=== PATIENT | female | born 1955 | race Caucasian/White ===

== ENCOUNTER 2021-01-11 09:12 | Day surgery (SDC) | payer MEDICARE ==
[~2021-01-11] VITALS: Ht 161 cm; Wt 106.1 kg
[~2021-01-11 09:12] MED LIST: BUSP5 PO; ESTR2; FISH1000 PO; Prinivil10 MG PO; RXPROACE PO; [UNRECOGNIZED DRUG - REMARK]
--- NOTE | 2021-01-11 09:43 | NUR ---
History, Chart, Medications and Allergies reviewed before start of procedure. Patient confirms NPO status and agrees with scheduled surgery. Patient States Post-Procedure ride home has been arranged with her daughter, Andreina. Reports taking all of colon prep with clear results.
[2021-01-11] MEDS ORDERED: METO50ER PO (09:55)
[2021-01-11] MEDS ORDERED: ALPR1 PO (09:57)
[2021-01-11] MEDS ORDERED: VITAMIN D3 (09:58)
--- NOTE | 2021-01-11 10:54 | NUR ---
01/11/21 1054 Adán Garrett HISTORY,CHART, MEDICATIONS AND ALLERGIES REVIEWED BEFORE START OF PROCEDURE. PATIENT CONFIRMS NPO STATUS AND AGREES WITH SCHEDULED PROCEDURE. 3-LEAD EKG REVIEWED WITH PHYSICIAN PRIOR TO START OF PROCEDURE. MONITOR INTACT WITH CONTINUOUS PULSE OXIMETRY AND INTERMITTENT BP. SUPPLEMENTAL O2 TO BE TITRATED THROUGHOUT PROCEDURE TO MAINTAIN O2 SATURATION ABOVE 90%. PATIENT DETERMINED TO BE ASA APPROPRIATE FOR MODERATE SEDATION PRIOR TO START OF PROCEDURE BY DR. SANTIAGO.
--- NOTE | 2021-01-11 11:29 | NUR ---
PATIENT ALERT AND ORIENTED. REPOSITIONED SELF IN BED. REQUESTED AND TOLERATING PO FOOD AND FLUIDS.
--- NOTE | 2021-01-11 11:52 | NUR ---
Patient up to Ambulate independently. Gait steady. Discharge instructions reviewed with patient. Patient verbalizes understanding. Copy given to patient to take home. Patient States Post-Procedure ride home has been arranged. Discharged via wheelchair to private car for ride home. PATIENT STATES DISCHARGE INSTRUCTIONS VERBALLY GIVEN TO HER FROM DR. SANTIAGO IN REGARDS TO NEXT COLONOSCOPY AND FOLLOW UP APPOINTMENT. ALL BELONGINGS RETURNED TO PATIENT.
== END 2021-01-11 11:52 | disposition home or self-care (01) ==
LOC: ORSCMMR 09:12 → ORD 10:00 → ORSCMMR 11:52
PROVIDERS: Internal Medicine Gastroenterology
PROC: 0DBL8ZX Excision of Transverse Colon, Via Natural or Artificial Opening Endoscopic, Diagnostic (ICD-10-PCS; principal; 2021-01-11 10:00)
PROC: 0DBN8ZX Excision of Sigmoid Colon, Via Natural or Artificial Opening Endoscopic, Diagnostic (ICD-10-PCS; principal; 2021-01-11 10:00)
DX: Z12.11 Encounter for screening for malignant neoplasm of colon (principal); Z86.010 Personal history of colon polyps; D12.3 Benign neoplasm of transverse colon; K63.5 Polyp of colon; I10 Essential (primary) hypertension; F41.9 Anxiety disorder, unspecified; E78.00 Pure hypercholesterolemia, unspecified; G47.30 Sleep apnea, unspecified; E66.01 Morbid (severe) obesity due to excess calories; Z68.41 Body mass index [BMI] 40.0-44.9, adult; F17.210 Nicotine dependence, cigarettes, uncomplicated; Z79.899 Other long term (current) drug therapy
CPT/HCPCS: 88305; J2250; J3010; J7120

== ENCOUNTER 2022-07-04 12:02 | Inpatient (IN) | payer OTHER, MEDICARE ==
[~2022-07-04] VITALS: Ht 172.7 cm; Wt 136.1 kg
[~2022-07-04 12:02] MED LIST changes: +ALPR1 PO; +METO50ER PO; +VITAMIN D3
[2022-07-04 12:20] LABS: Calcium, Ionized (POC) 1.06 mmol/L (1.10-1.46); Chloride (POC) 109 mmol/L (98-108); Creatinine (POC) 1.1 mg/dL (0.6-1.0); Glucose (ISTAT POC) 182 mg/dL (70-99); Hemoglobin (POC) 15.3 g/dL (12.0-16.0); Potassium (POC) 4.4 mmol/L (3.5-5.5); Sodium (POC) 138 mmol/L (135-148); Total CO2 (POC) 20 mmol/L (21-32)
[2022-07-04 12:50] LABS: Hematocrit 46.1 % (33.0-51.0); Hemoglobin 13.5 g/dL (11.5-16.0); Mean Corpuscular HGB 27.4 pg (26.0-34.0); Mean Corpuscular HGB Conc 29.3 g/dL (31.5-36.5); Mean Corpuscular Volume 94 fL (80-100); Mean Platelet Volume 9.9 fL (9.1-12.4); NRBC ABSOLUTE 0.12 K/mm3 (0.00-0.02); NRBC Auto 1.4 /100 WBC (0.0-0.2); Platelet Count 126 K/mm3 (150-400); RDW Coefficient Variation 15.5 % (11.7-14.2); RDW Standard Deviation 53.3 fL (35.1-46.3); Red Blood Cell Count 4.93 M/mm3 (3.80-5.20); White Blood Cell Count 8.53 K/mm3 (4.00-11.30)
[2022-07-04 13:00] LABS: Bicarbonate Venous 7.8 mmol/L (24.0-30.0); PCO2 Venous 56.9 mmHg (38-42)
[2022-07-04 13:01] LABS: pH Blood Venous 6.82 (7.34-7.37)
[2022-07-04 13:15] LABS: Albumin/Globulin Ratio 0.6 (0.8-1.8); Bilirubin, Total 0.4 mg/dL (0.1-1.0); Bun/Creatinine Ratio 12.5 (12.0-20.0); Calcium, Blood 10.3 mg/dL (8.5-10.1); Creatinine, Blood 1.04 mg/dL (0.40-1.00); Globulin, Blood 3.1 g/dL (2.2-4.0); Total Protein, Blood 5.1 g/dL (6.4-8.2)
[2022-07-04 13:25] LABS: BAND PERCENT MAN 3 % (0-8); BASOPHILS PERCENT MAN 0 % (0-2); EOSINOPHILS ABSOLUTE MAN 0.17 K/mm3 (0.00-0.68); EOSINOPHILS PERCENT MAN 2 % (0-6); LYMPHOCYTES ABSOLUTE MAN 4.77 K/mm3 (0.84-5.20); LYMPHOCYTES PERCENT MAN 56 % (21-46); METAMYELOCYTE ABSOLUTE MAN 0.17 K/mm3 (0.00-0.00); METAMYELOCYTE PERCENT MAN 2 % (0-0); MONOCYTES ABSOLUTE MAN 0.34 K/mm3 (0.16-1.47); MONOCYTES PERCENT MAN 4 % (4-13); MYELOCYTE ABSOLUTE MAN 0.17 K/mm3 (0.00-0.00); MYELOCYTE PERCENT MAN 2 % (0-0); SEG NEUTROPHILS PERCENT MAN 31 % (41-73); TOTAL CELLS COUNTED 100
[2022-07-04 13:57] LABS: International Normalized Ratio 1.27; Prothrombin Time Results 13.1 Sec (9.7-11.5)
[2022-07-04 14:08] LABS: PCO2 Arterial 56.7 mmHg (35-45); PO2 Arterial 70.5 mmHg (80-100); pH Blood Arterial 6.96 (7.35-7.45)
[2022-07-04 14:39] LABS: Influenza A, PCR NEGATIVE (NEGATIVE); Influenza B, PCR NEGATIVE (NEGATIVE); Resp Syncytial Virus, PCR NEGATIVE (NEGATIVE); SARS-Cov-2 (COVID-19) PCR, MMC NEGATIVE (NEGATIVE)
[2022-07-04 17:08] LABS: PCO2 Arterial 42.9 mmHg (35-45); PO2 Arterial 64.7 mmHg (80-100); pH Blood Arterial 7.03 (7.35-7.45)
--- NOTE | 2022-07-04 18:11 | NUR ---
Called to update family and review prognosis. Pt unreponsive not on sedation, long history of htn and smoking and obesity. Family relays she has been struggling with uncontrolled htn the pst few months. States she was having pain in the middle of her back and went to chiropractor. Came home complaining of chest pain. proceded to go into cardiac arrest. Met wt her daughter and young son. Brought them to room to see her and interact with her. relayed [facility] lab plan her vitals and that she was not on any sedation and not waking up. Advised we are going to give her comprehensive care but she may not survive or recover well. Her chlidren were loving and encouraged her but understand how grim her prospects are and will update the family.
--- NOTE | 2022-07-04 18:40 | NUR ---
Spiritual Care | Nurse Request. Pt. is intubated and not responsive, family is present including Pts. daughter who is identified as the decision maker. Daughter requests Full Code measures. Some family members are cathartic and inconsolable. Several family members arrive. Nurse Sanchez warmly instructs the family of the serious nature of the Pts condition and the full medication and treatment that is given. This cook vegetable for the Pt. prayed with the family (twice), and with a calming presence read scripture when the moment was right. One last family member is en route. The family present displayed evidence of acceptance of the Pts. condition. This cook vegetable had to excuse himself because of the end of shift, and informed the charge nurse that an "cook station" cook vegetable was available if the family requests. Spoke with the Pts. daughter about the spiritual care transition. Daughter verbalized gratitude for the spiritual care visit.
--- NOTE | 2022-07-04 19:00 | NUR ---
ASSUMED CARE PT INTUBATED W/ NO SEDATION AND NOT RESTRAINED. AC/VC 18/400/14/100%. RR 18-20. SPO2 60-67%. LUNG SOUNDS COARSE. BLOODY ORAL SECRETIONS. PUPILS 4MM AND FIXED. LEVOPHED, VASOPRESSIN, EPINEPHRINE, TITUS-SYNEPHRINE, AMIODARONE, AND D5 W/ BICARB GTT INFUSING. SEE FLOWSHEET FOR TITRATIONS. RIGHT RADIAL SHEATH IN PLACE, BEING USED ARTLINE. ASBP 30-40'S. CENTRAL LINE TO RIGHT FEMORAL. FAMILY IN ROOM.
--- NOTE | 2022-07-04 19:39 | NUR ---
Shift summary Pt arrived to ICU 7 from computer lab para professional at 1645. BP low upon arrival, levophed infusing. behavior clinician, Respiratory Therapy and Dr. Donato at bedside. The following titrations and medications adminstered after pt arrival: 1700- Levophed increased to 35mcg/min 1710- Epinephrine drip started at 20mcg/min 1717- 1 amp HCO3 given IVP per Dr. Donato 1728- PEEP increased to 14 by MD 1734- Vasopressin started at 0.04units/min 1750- Neosnephrine started at 300mcg/min 1757- 1 amp HCO3 given IVP per Dr. Donato 1800- New bag of Levophed hung, requested quad strength from pharmacy, ok per MD. 1805- Bicarb drip started. Several family members at bedside including children, siblings, ex-, mother, nieces and nephews. All updated constantly by this RN and MD. Emotional support provided. Spiritual care stayed with family to provide prayer and support. HR and BP steadily decreased despite IV medication. Family understands the prognosis is poor. They are still requesting pt be a full code and that CPR be done in the event pt's heart stops. Bedside report provided to oncoming RN, all medications and lines reviewed during handoff.
--- NOTE | 2022-07-04 20:52 | NUR ---
Call back - Pt had passed. Multiple family members present. Provided pastoral presence for pt's mother and other family members. Extended an audible supplication as family gathered around. Family said their goodbyes and appeared to be grieving appropriately. Oldest sibling stated he would be taken mother home. Family verbalized gratitude for the intervention.
--- NOTE | 2022-07-04 22:10 | NUR ---
CODE STAFF IN ROOM WHEN HR DECREASED TO THE 20'S. DR COHEN AND FAMILY AT BEDSIDE. CODE CALLED AND CHEST COMPRESSIONS STARTED AT 2008. SEE CODE SHEET. ISAIAH NOTIFIED. TIME OF CALLED AT [address] COHEN. FAMILY AND ISAIAH AT BEDSIDE.
--- NOTE | 2022-07-04 23:22 | NUR ---
FINAL DISCHARGE [employer] CALLED AND CLEARED PT 2143. DONOR LINE NOTIFIED, INFOMATION FAXED, AND ICE APPLIED TO EYES PER REQUEST. FAMILY REQUESTED [facility] OF THE [facility]. CALL MADE AND AWAITING THEIR ARRIVAL AT THIS TIME.
== END 2022-07-04 20:24 | DRG 246 ==
LOC: ER 12:02 → ERHOLD 13:48 → ICUE 16:43
PROVIDERS: Emergency Medicine; Internal Medicine Critical Care Medicine; Nurse Practitioner Acute Care; ADMIT Hospitalist
PROC: 027034Z Dilation of Coronary Artery, One Artery with Drug-eluting Intraluminal Device, Percutaneous Approach (ICD-10-PCS; principal; 2022-07-04)
PROC: 4A023N7 Measurement of Cardiac Sampling and Pressure, Left Heart, Percutaneous Approach (ICD-10-PCS; 2022-07-04)
PROC: B211YZZ Fluoroscopy of Multiple Coronary Arteries using Other Contrast (ICD-10-PCS; 2022-07-04)
PROC: B240ZZ3 Ultrasonography of Single Coronary Artery, Intravascular (ICD-10-PCS; 2022-07-04)
PROC: 5A12012 Performance of Cardiac Output, Single, Manual (ICD-10-PCS; 2022-07-04)
PROC: 02C03ZZ Extirpation of Matter from Coronary Artery, One Artery, Percutaneous Approach (ICD-10-PCS; 2022-07-04)
PROC: 5A1935Z Respiratory Ventilation, Less than 24 Consecutive Hours (ICD-10-PCS; 2022-07-04)
PROC: 0BH17EZ Insertion of Endotracheal Airway into Trachea, Via Natural or Artificial Opening (ICD-10-PCS; 2022-07-04)
PROC: 02HV33Z Insertion of Infusion Device into Superior Vena Cava, Percutaneous Approach (ICD-10-PCS; 2022-07-04)
PROC: B548ZZA Ultrasonography of Superior Vena Cava, Guidance (ICD-10-PCS; 2022-07-04)
PROC: 3E033XZ Introduction of Vasopressor into Peripheral Vein, Percutaneous Approach (ICD-10-PCS; 2022-07-04)
PROC: 5A2204Z Restoration of Cardiac Rhythm, Single (ICD-10-PCS; 2022-07-04)
DX: I21.19 ST elevation (STEMI) myocardial infarction involving other coronary artery of inferior wall (principal); J96.01 Acute respiratory failure with hypoxia; Z68.42 Body mass index [BMI] 45.0-49.9, adult; E87.21 Acute metabolic acidosis; I49.01 Ventricular fibrillation; I46.2 Cardiac arrest due to underlying cardiac condition; I48.0 Paroxysmal atrial fibrillation; I10 Essential (primary) hypertension; R57.0 Cardiogenic shock; E66.01 Morbid (severe) obesity due to excess calories; R74.01 Elevation of levels of liver transaminase levels; F41.9 Anxiety disorder, unspecified; F17.210 Nicotine dependence, cigarettes, uncomplicated; E78.00 Pure hypercholesterolemia, unspecified; F12.10 Cannabis abuse, uncomplicated; E11.65 Type 2 diabetes mellitus with hyperglycemia; Z20.822 Contact with and (suspected) exposure to COVID-19; Z90.49 Acquired absence of other specified parts of digestive tract; Z79.899 Other long term (current) drug therapy; Z90.710 Acquired absence of both cervix and uterus; Z88.8 Allergy status to other drugs, medicaments and biological substances; Z90.721 Acquired absence of ovaries, unilateral
CPT/HCPCS: 0241U; 31500; 36556; 36600; 51702; 71045; 76937; 80047; 80053; 82803; 83605; 83735; 84484; 85014; 85025; 85347; 85610; 92950; 92978; 93005; 93010; 93306; 93308; 93321; 93454; 94002; 96361-59; 96374-59; 96375-59; 96376-59; 99152; 99153; 99291-25; 99292; A9270; C1725; C1751; C1753; C1757; C1769; C1874; C1887; C1894; C9600; C9606; J0171; J0282; J0461; J1644; J2250; J2370; J2704; J3010; J3475; J7030; J7040; J7060; J7070; Q9967